=== PATIENT | male | born 2000 | race Two or more races ===

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

== ENCOUNTER 2020-09-11 18:28 | Emergency (ER) | payer BC, MEDICAID ==
[~2020-09-11] VITALS: Ht 162.6 cm; Wt 54.0 kg
[~2020-09-11 18:28] MED LIST changes: +IBUPROFEN600 MG ORAL
[2020-09-11 19:29] VITALS: BP 120/76
--- NOTE | 2020-09-11 19:30 | NUR ---
Complaints of abdominal pain x 2 days no vomiting but has nausea venous blood send to lab meds given
--- NOTE | 2020-09-11 19:32 | Emergency Room Report ---
History of Present Illness General Chief Complaint: Abdominal Pain Source: Patient Present Illness HPI 20-year-old male with history of alcohol dependence and abuse presents to the emergency department complaining of 5 out of 10 severity upper quadrant abdominal pain and tenderness with associated nausea and vomiting x4 days. Patient reports inability to keep down oral intake. He reports he is also been drinking recently. He denies SI or HI. Patient denies PSAs. He denies Tylenol ingestion. Patient does report THC use. He denies use of other drugs. He reports several episodes of diarrhea associated when vomiting. He denies constipation. He denies blood in the vomit or stools. He reports his vomit is the consistency of acid. He reports decreased oral intake also because the site of food causes him severe nausea. Pt. reports hx of anxiety and currently takes Prozac for his symptoms. He denies increased anxiety. Patient reports he drinks a 250 mL bottle of alcohol over the course of 2 days regularly. Patient reports that he has been drinking this much x8 months. Allergies: Coded Allergies: No Known Allergies (Unverified , 09/23/13) COVID-19 Screening Contact w/high risk pt: No Experienced COVID-19 symptoms?: No COVID-19 Testing performed BIOMEDICAL EQUIPMENT SUPPORT SPECIALIST: No Patient History Past Medical History: see triage record Past Surgical History: none Pertinent Family History: none Reviewed Nursing Documentation: PMH: Agreed; PSxH: Agreed Nursing Documentation-PMH Past Medical History: No History, Except For Review of Systems All Other Systems: negative except mentioned in HPI Physical Exam Vital Signs Date Time Temp Pulse Resp B/P (MAP) Pulse Ox O2 Delivery O2 Flow Rate FiO2 09/11/20 18:41 98.2 77 16 110/76 (87) 99 Room Air Sp02 EP Interpretation: reviewed, normal General Appearance: no apparent distress, alert, GCS 15, non-toxic Head: normocephalic, atraumatic Eyes: bilateral eye normal inspection, bilateral eye PERRL, bilateral eye other - no icterus ENT: hearing grossly normal, normal voice Neck: full range of motion Respiratory: chest non-tender, lungs clear, normal breath sounds, no wheezing, speaking full sentences Cardiovascular #1: regular rate, rhythm, normal capillary refill Gastrointestinal: normal bowel sounds, non tender - besides mild epigastric ttp, no appreciable abdominal TTP. pt. with flank tenderness. , soft Rectal: deferred Genitourinary: normal inspection, CVA tenderness (R), CVA tenderness (L) Musculoskeletal: back normal, normal range of motion, gait/station normal, non- tender Neurologic: alert, motor strength/tone normal, oriented x3, sensory intact, responsive, speech normal Psychiatric: judgement/insight normal Lymphatic: no adenopathy Medical Decision Making PA Attestation Dr. Phelps Is my supervising Physician whom patient management has been discussed with. Diagnostic Impression: Primary Impression: Vomiting and diarrhea Additional Impressions: Abdominal pain Qualified Codes: R10.84 - Generalized abdominal pain Alcohol dependence Qualified Codes: F10.20 - Alcohol dependence, uncomplicated ER Course 20-year-old male with history of alcohol dependence and abuse presents to the emergency department complaining of 5 out of 10 severity upper quadrant abdominal pain and tenderness with associated nausea and vomiting x4 days. Patient reports inability to keep down oral intake. He reports he is also been drinking recently. He denies SI or HI. Patient denies PSAs. He denies Tylenol ingestion. Patient does report THC use. He denies use of other drugs. He reports several episodes of diarrhea associated when vomiting. He denies constipation. He denies blood in the vomit or stools. He reports his vomit is the consistency of acid. He reports decreased oral intake also because the site of food causes him severe nausea. Pt. reports hx of anxiety and currently takes Prozac for his symptoms. He denies increased anxiety. Patient reports he drinks a 250 mL bottle of alcohol over the course of 2 days regularly. Patient reports that he has been drinking this much x8 months. Ddx considered but are not limited to alcohol induced pancreatitis, hepatitis , COVID-19, Diverticulitis, acute appendicitis, diarrhea,UC, PUD, GE, pancreatitis, gallstones just to name a few. Vital signs: are WNL, pt. is afebrile H&PE are most consistent with alcohol induced gastritis vs pancreatitis. No evidence to suggest acute abdomen on exam. Patient is nontoxic in appearance in no acute distress. Patient has not been visualized to vomited actively while in the emergency department. No jaundice or abdominal distention. Patient sitting comfortably. ORDERS: CBC: WNL, mild elevated in WBCs of 11k CMP- elevated Bili, and direct bili c/w values seen in ETOH dependence/ abuse. Lipase: WNL - UA: WNL ED INTERVENTIONS: -Zofran -Lidocaine -Pepcid PO -Lidocaine PO -Toradol IV After above interventions this patient successfully completed oral fluid challenge without nausea or vomiting. -I do not identify an emergent condition at this time. With current presentation, pt. is stable for close outpatient follow up and conservative treatment. D/w pt. to return promptly to ED with worsening or new symptoms.- Pt. verbalizes' understanding and agreement with proposed treatment plan. DISCHARGE: At this time pt. is stable for d/c to home. Will provide printed patient care instructions, and any necessary prescriptions. Care plan and follow up instructions have been discussed with the patient prior to discharge. Labs Test 09/11/20 19:15 White Blood Count 11.8 K/UL (4.8-10.8) Red Blood Count 5.12 M/UL (4.70-6.10) Hemoglobin 16.7 G/DL (14.2-18.0) Hematocrit 45.5 % (42.0-52.0) Mean Corpuscular Volume 89 FL (80-99) Mean Corpuscular Hemoglobin 32.6 PG (27.0-31.0) Mean Corpuscular Hemoglobin Concent 36.7 G/DL (32.0-36.0) Red Cell Distribution Width 13.6 % (11.6-14.8) Platelet Count 272 K/UL (150-450) Mean Platelet Volume 8.3 FL (6.5-10.1) Neutrophils (%) (Auto) 82.6 % (45.0-75.0) Lymphocytes (%) (Auto) 12.7 % (20.0-45.0) Monocytes (%) (Auto) 3.6 % (1.0-10.0) Eosinophils (%) (Auto) 0.1 % (0.0-3.0) Basophils (%) (Auto) 1.0 % (0.0-2.0) Urine Color Pale yellow Urine Appearance Clear Urine pH 7 (4.5-8.0) Urine Specific [place] 1.010 (1.005-1.035) Urine Protein Negative (NEGATIVE) Urine Glucose (UA) Negative (NEGATIVE) Urine Ketones 1+ (NEGATIVE) Urine Blood Negative (NEGATIVE) Urine Nitrite Negative (NEGATIVE) Urine Bilirubin Negative (NEGATIVE) Urine Urobilinogen 1 MG/DL (0.0-1.0) Urine Leukocyte Esterase Negative (NEGATIVE) Sodium Level 139 MMOL/L (136-145) Potassium Level 3.9 MMOL/L (3.5-5.1) Chloride Level 102 MMOL/L (98-107) Carbon Dioxide Level 28 MMOL/L (21-32) Anion Gap 9 mmol/L (5-15) Blood Urea Nitrogen 12 mg/dL (7-18) Creatinine 1.0 MG/DL (0.55-1.30) Estimat Glomerular Filtration Rate > 60 mL/min (>60) Glucose Level 90 MG/DL (74-106) Calcium Level 9.3 MG/DL (8.5-10.1) Total Bilirubin 1.6 MG/DL (0.2-1.0) Direct Bilirubin 0.4 MG/DL (0.0-0.3) Aspartate Amino Transf (AST/SGOT) 15 U/L (15-37) Alanine Aminotransferase (ALT/SGPT) 15 U/L (12-78) Alkaline Phosphatase 65 U/L (46-116) Total Protein 8.5 G/DL (6.4-8.2) Albumin 4.7 G/DL (3.4-5.0) Globulin 3.8 g/dL Albumin/Globulin Ratio 1.2 (1.0-2.7) Lipase 86 U/L (73-393) Urine Opiates Screen Negative (NEGATIVE) Urine Barbiturates Screen Negative (NEGATIVE) Phencyclidine (PCP) Screen Negative (NEGATIVE) Urine Amphetamines Screen Negative (NEGATIVE) Urine Benzodiazepines Screen Negative (NEGATIVE) Urine Cocaine Screen Negative (NEGATIVE) Urine Marijuana (THC) Screen Positive (NEGATIVE) Last Vital Signs Date Time Temp Pulse Resp B/P (MAP) Pulse Ox O2 Delivery O2 Flow Rate FiO2 09/11/20 18:41 98.2 77 16 110/76 (87) 99 Room Air Status: improved Disposition: HOME, SELF-CARE Condition: Stable Referrals: [facility]en Gaviria [facility] + [facility] Patient Instructions: Abdominal Pain, Adult Additional Instructions: Review list of ETOH and Drug dependence and abuse resources. -- Do your best to limit or refrain from excessive Alcohol use. Take medications as directed. Follow up with a Primary Care Provider in 3-5 days, even if your symptoms have resolved. --Please review list of primary care clinics, if you do not already have a primary care provider Return sooner to ED if new symptoms occur, or current symptoms become worse. - Please note that this Emergency Department Report was dictated using [email or web address] portfolio manager technology software, occasionally this can lead to erroneous entry secondary to interpretation by the dictation equipment. Soledad Manning Sep 11, 2020 19:32
[2020-09-11 19:45] LABS: ANION GAP 9 mmol/L (5-15); BLOOD UREA NITROGEN 12 mg/dL (7-18); CALCIUM 9.3 MG/DL (8.5-10.1); CARBON DIOXIDE 28 MMOL/L (21-32); CHLORIDE 102 MMOL/L (98-107); POTASSIUM 3.9 MMOL/L (3.5-5.1); SODIUM 139 MMOL/L (136-145)
[2020-09-11 19:46] LABS: EOSINOPHILS % (AUTO) 0.1 % (0.0-3.0); HEMATOCRIT 45.5 % (42.0-52.0); HEMOGLOBIN 16.7 G/DL (14.2-18.0); LYMPHOCYTES % (AUTO) 12.7 % (20.0-45.0); MEAN CORPUSCULAR VOLUME 89 FL (80-99); MONOCYTES % (AUTO) 3.6 % (1.0-10.0); NEUTROPHILS % (AUTO) 82.6 % (45.0-75.0); PLATELET COUNT 272 K/UL (150-450); RED BLOOD COUNT 5.12 M/UL (4.70-6.10); RED CELL DISTRIBUTION WIDTH 13.6 % (11.6-14.8); WHITE BLOOD COUNT 11.8 K/UL (4.8-10.8)
[2020-09-11 19:56] LABS: ALANINE AMINOTRANSFERASE 15 U/L (12-78); ALBUMIN 4.7 G/DL (3.4-5.0); ALBUMIN/GLOBULIN RATIO 1.2 (1.0-2.7); ALKALINE PHOSPHATASE 65 U/L (46-116); ASPARTATE AMINO TRANSFERASE 15 U/L (15-37); BILIRUBIN,TOTAL 1.6 MG/DL (0.2-1.0)
[2020-09-11 19:58] LABS: BILIRUBIN,DIRECT 0.4 MG/DL (0.0-0.3)
[2020-09-11 20:06] LABS: APPEARANCE,URINE CLEAR; BILIRUBIN, URINE NEGATIVE (NEGATIVE); COLOR,URINE PALE YELLOW; GLUCOSE, URINE (UA) NEGATIVE (NEGATIVE); KETONES,URINE 1+ (NEGATIVE); LEUKOCYTE ESTERASE ,URINE NEGATIVE (NEGATIVE); NITRITE,URINE NEGATIVE (NEGATIVE); PH,URINE 7 (4.5-8.0); PROTEIN,URINE NEGATIVE (NEGATIVE); UROBILINOGEN,URINE 1 MG/DL (0.0-1.0)
[2020-09-11] MEDS ORDERED: Lidocaine 2% Visc 15ml soln ORAL ONE (20:15)
[2020-09-11] MEDS ORDERED: Ketorolac 30mg Inj IV ONE (20:30)
[2020-09-11] MEDS ORDERED: ONDANSETRON ODT4 MG BC (20:58)
[2020-09-11] MEDS ORDERED: FAMOTIDINE20 MG ORAL (20:58)
[2020-09-11] MEDS ORDERED: DICYCLOMINE HCL10 MG ORAL (20:58)
--- NOTE | 2020-09-11 21:02 | NUR ---
ER DISCHARGE NOTE: Patient is cleared to be discharged per ERMD, pt is aox4, on room air, with stable vital signs. pt was given dc and prescription instructions, pt was able to verbalize understanding, pt id band and iv site removed without complications. pt is able to ambulate with steady gait. pt took all belongings.
[2020-09-11 21:03] VITALS: BP 120/76
== END 2020-09-11 21:05 | disposition home or self-care (01) ==
LOC: EMR 19:22
DX: R11.10 Vomiting, unspecified (principal); R19.7 Diarrhea, unspecified; R10.84 Generalized abdominal pain; F10.20 Alcohol dependence, uncomplicated; F12.90 Cannabis use, unspecified, uncomplicated
CPT/HCPCS: 36415; 80053; 80307; 81003; 82248; 83690; 85025; 96374; 99284; J1885